=== PATIENT | male | born 1985 | race Asian ===

== ENCOUNTER → 2017-05-04 | Outpatient (CLI) | payer MEDICAID ==
[~2017-05-04] MED LIST: AMLO5TAB2 PO; ATEN50TA41 PO
== END | disposition home or self-care (01) ==
LOC: CFH 16:26
PROVIDERS: ATTEND Emergency Medicine
DX: M54.5 Low back pain (principal); R10.9 Unspecified abdominal pain
CPT/HCPCS: 76770

== ENCOUNTER 2017-08-19 10:15 | Emergency (ER) | payer MEDICAID ==
[~2017-08-19] VITALS: Ht 177.8 cm; Wt 71.0 kg
[2017-08-19 10:18] VITALS: BP 152/109
[2017-08-19] MEDS ORDERED: LORazepam 1MG TABLET PO ONE (11:00)
[2017-08-19] MEDS ORDERED: LORazepam 1MG TABLET ONE (11:25)
[2017-08-19] MEDS ORDERED: HYDROcodone/APAP 5/325 TABLET ONE (12:51)
[2017-08-19] MEDS ORDERED: HYDROcodone/APAP 5/325 TABLET PO ONE (13:00)
== END 2017-08-19 13:03 | disposition home or self-care (01) ==
LOC: ED 12:53
DX: F41.1 Generalized anxiety disorder (principal); F10.10 Alcohol abuse, uncomplicated; I10 Essential (primary) hypertension
CPT/HCPCS: 99284

== ENCOUNTER 2017-12-06 22:20 | Emergency (ER) | payer MEDICAID ==
[~2017-12-06] VITALS: Ht 177.8 cm; Wt 74.4 kg
[2017-12-06] MEDS ORDERED: METOCLOPRAMIDE 5 MG/ML, 2ML ONE (23:23)
[2017-12-06] MEDS ORDERED: KETOROLAC 30 MG/1 ML ONE (23:23)
[2017-12-06] MEDS ORDERED: DIPHENHYDRAMINE 50 MG/ML, 1ML ONE (23:23)
[2017-12-06] MEDS ORDERED: SODIUM CHLORIDE FLUSH 10ML SYR IVF ONE (23:30)
[2017-12-06] MEDS ORDERED: KETOROLAC 30 MG/1 ML IVPush ONE (23:30)
[2017-12-06] MEDS ORDERED: SODIUM CHLORIDE 0.9% 1,000ML IVBOLUS ONE (23:30)
[2017-12-06] MEDS ORDERED: METOCLOPRAMIDE 5 MG/ML, 2ML IVPush ONE (23:30)
[2017-12-06] MEDS ORDERED: DIPHENHYDRAMINE 50 MG/ML, 1ML IVPush ONE (23:30)
[2017-12-06 23:50] LABS: BASOPHILS # (AUTO) 0.07 x10^3/uL (0-0.1); BASOPHILS % (AUTO) 1 % (0-1); EOSINOPHILS # (AUTO) 0.55 x10^3/uL (0-0.4); EOSINOPHILS % (AUTO) 9 % (1-7); LYMPHOCYTES # (AUTO) 2.69 x10^3/uL (1-3.4); LYMPHOCYTES % (AUTO) 45 % (22-44); MD NO; MEAN CORPUSCULAR HEMOGLOBIN 28.1 pg (27.5-34.5); MEAN CORPUSCULAR HGB CONC 33.7 g/dL (33.2-36.2); MEAN CORPUSCULAR VOLUME 83.5 fL (81-97); MEAN PLATELET VOLUME 7.8 fL (7.4-10.4); MONOCYTES # (AUTO) 0.52 x10^3/uL (0.2-0.8); MONOCYTES % (AUTO) 9 % (2-9); NEUTROPHILS # (AUTO) 2.23 x10^3/uL (1.8-6.8); NEUTROPHILS % (AUTO) 37 % (42-75); PLATELET COUNT 269 x10^3/uL (130-400); RED BLOOD COUNT 4.62 x10^6/uL (4.38-5.82); RED CELL DISTRIBUTION WIDTH 13.8 % (9.4-14.8)
[2017-12-07] LABS: ANION GAP 6 mmol/L (5-15); CALCIUM 7.7 mg/dL (8.5-10.1); CHLORIDE 109 mmol/L (98-107); CREATININE 0.82 mg/dL (0.7-1.3)
[2017-12-07 00:37] VITALS: BP 121/90
== END 2017-12-07 00:41 | disposition home or self-care (01) ==
LOC: ED 12-07 00:35
DX: R51 Headache (principal); I10 Essential (primary) hypertension
CPT/HCPCS: 36415; 80048; 85025; 96361; 96374; 96375; 99284; J1200; J1885; J2765; J7030

== ENCOUNTER 2019-09-29 23:59 | Emergency (ER) | payer MEDICAID ==
[~2019-09-29] VITALS: Ht 177.8 cm; Wt 72.7 kg
[~2019-09-29 23:59] MED LIST changes: +AMLO-150 PO; -AMLO5TAB2 PO
[2019-09-30 00:11] VITALS: BP 141/92
--- NOTE | 2019-09-30 01:16 | NUR ---
PT IN CT AT THIS TIME.
[2019-09-30 01:28] LABS: BASOPHILS # (AUTO) 0.05 x10^3/uL (0-0.1); BASOPHILS % (AUTO) 1 % (0-1); EOSINOPHILS # (AUTO) 0.29 x10^3/uL (0-0.4); EOSINOPHILS % (AUTO) 4 % (1-7); LYMPHOCYTES # (AUTO) 3.24 x10^3/uL (1-3.4); LYMPHOCYTES % (AUTO) 45 % (22-44); MD NO; MEAN CORPUSCULAR HEMOGLOBIN 28.1 pg (27.5-34.5); MEAN CORPUSCULAR HGB CONC 32.8 g/dL (33.2-36.2); MEAN CORPUSCULAR VOLUME 85.6 fL (81-97); MEAN PLATELET VOLUME 7.4 fL (7.4-10.4); MONOCYTES # (AUTO) 0.61 x10^3/uL (0.2-0.8); MONOCYTES % (AUTO) 9 % (2-9); NEUTROPHILS # (AUTO) 2.99 x10^3/uL (1.8-6.8); NEUTROPHILS % (AUTO) 42 % (42-75); PLATELET COUNT 387 x10^3/uL (130-400); RED BLOOD COUNT 5.06 x10^6/uL (4.38-5.82); RED CELL DISTRIBUTION WIDTH 14.5 % (9.4-14.8)
[2019-09-30 01:30] LABS: MICROSCOPIC NOT IND
[2019-09-30 01:36] LABS: ALANINE AMINOTRANSFERASE 23 U/L (12-78); ALBUMIN 3.5 g/dL (3.4-5.0); ANION GAP 6 mmol/L (5-15); CALCIUM 8.8 mg/dL (8.5-10.1); CHLORIDE 107 mmol/L (98-107); CREATININE 1.01 mg/dL (0.7-1.3)
[2019-09-30 01:38] LABS: ALKALINE PHOSPHATASE 71 U/L (45-117); BILIRUBIN,TOTAL 0.2 mg/dL (0.2-1.0); TOTAL PROTEIN 7.9 g/dL (6.4-8.2)
[2019-09-30 01:43] LABS: CULTURE INDICATED? NO
[2019-09-30] MEDS ORDERED: KETOROLAC 60 MG/2 ML ONE (02:25)
[2019-09-30] MEDS ORDERED: ONDANSETRON ODT 4 MG ONE (02:25)
[2019-09-30] MEDS ORDERED: HYDROmorphone 1 MG/ML, 1ML VIAL ONE (02:26)
[2019-09-30] MEDS ORDERED: ONDANSETRON ODT 4 MG PO ONE (02:30)
[2019-09-30] MEDS ORDERED: HYDROmorphone 2 MG/ML, 1ML IM ONE (02:30)
[2019-09-30] MEDS ORDERED: KETOROLAC 30 MG/1 ML IM ONE (02:30)
== END 2019-09-30 03:05 | disposition home or self-care (01) ==
LOC: ED 09-30 02:09
DX: N13.2 Hydronephrosis with renal and ureteral calculous obstruction (principal); I10 Essential (primary) hypertension
CPT/HCPCS: 36415; 74176; 80053; 80307; 81003; 83690; 85025; 93005; 96372; 99284; J1170; J1885; Q0162